=== PATIENT | female | born 1975 | race Caucasian/White ===

== ENCOUNTER → 2017-09-21 | Outpatient (CLI) | payer BC | LOC: M WHC 10:33 | DX: Z12.31 Encounter for screening mammogram for malignant neoplasm of breast (principal) | CPT/HCPCS: 77067 ==

== ENCOUNTER → 2017-09-21 | Outpatient (REF) | payer BC | LOC: M SFHCWAGY 10:40 | DX: Z12.4 Encounter for screening for malignant neoplasm of cervix (principal) | CPT/HCPCS: G0123 ==

== ENCOUNTER → 2018-09-24 | Outpatient (REF) | payer BC | LOC: M SFHCWAGY 08:17 | PROVIDERS: ATTEND Nurse Practitioner Women's Health | DX: Z12.4 Encounter for screening for malignant neoplasm of cervix (principal) | CPT/HCPCS: 87624; G0123 ==

== ENCOUNTER → 2018-09-24 | Outpatient (CLI) | payer BC ==
--- NOTE | 2018-09-24 09:02 | REPMRS ---
Patient History The patient states she had a clinical breast exam in 09/2018. Family history of breast cancer at age 50 or over in maternal cousin. Took hormonal contraceptives for 10 years beginning at age 20. 3D TOMOSYNTHESIS WAS PERFORMED. Digital Woman Screen Mammo: September 24, 2018 - Exam #: [id number] Bilateral CC and MLO view(s) were taken. Technologist: Rosana Ren, Technologist Prior study comparison: September 21, 2017, digital woman screen mammo performed at [facility]. May 31, 2016, digital woman screen mammo performed at [facility]. FINDINGS: There are scattered fibroglandular densities. There has been no change in the appearance of the mammogram from the prior studies. There is a mild amount of residual fibroglandular tissue which is fairly symmetric. There is no interval development of dominant mass, architectural distortion, or clustered microcalcification suggestive of malignancy. Assessment: BI-RADS/ACR category 1 mammogram. Negative Mammogram. Recommendation Routine screening mammogram in 1 year (for women over age 40). This mammogram was interpreted with the aid of an FDA-approved computer-aided dectection system. Electronically Signed By: Jordan Munoz MD 09/24/18 0902
== END ==
LOC: M WHC 08:03
PROVIDERS: ATTEND Nurse Practitioner Women's Health
DX: Z12.31 Encounter for screening mammogram for malignant neoplasm of breast (principal); Z80.3 Family history of malignant neoplasm of breast

== ENCOUNTER → 2019-09-25 | Outpatient (CLI) | payer BC ==
--- NOTE | 2019-09-25 10:22 | REPMRS ---
Patient History The patient states she has not had a clinical breast exam in over a year. Family history of breast cancer at age 50 or over in maternal cousin. Took hormonal contraceptives for 10 years beginning at age 20. Digital Woman Screen Mammo: September 25, 2019 - Exam #: [id number] Bilateral CC and MLO view(s) were taken. Technologist: Rosalina Huynh, Technologist Prior study comparison: September 24, 2018, bilateral digital woman screen mammo performed at [facility]. September 21, 2017, digital woman screen mammo performed at [facility]. May 31, 2016, digital woman screen mammo performed at [facility]. FINDINGS: There are scattered fibroglandular densities. There has been no change in the appearance of the mammogram from the prior studies. There is a mild amount of scattered fibroglandular density which is fairly symmetric. There is no interval development of dominant mass, architectural distortion, or grouped microcalcification suggestive of malignancy. 3-D tomosynthesis shows no additional findings. Assessment: BI-RADS/ACR category 1 mammogram. Negative Mammogram. Recommendation Routine screening mammogram of both breasts in 1 year (for women over age 40). This patient's Lifetime Breast Cancer Risk is estimated at 11.7 %. This mammogram was interpreted with the aid of an FDA-approved computer-aided dectection system. Electronically Signed By: Zeke Stover MD 09/25/19 [id number]
--- NOTE | 2019-09-25 10:47 | REP ---
Clinical: Dysmenorrhea. Technique: Transabdominal obstetrical ultrasound with color evaluation. Findings: Normal anteverted uterus measures a 0.7 x 4.5 x 5.3 cm. Endometrial complex measures 9.7 mm thickness. No discrete uterine or endometrial abnormality identified. The bilateral ovaries are normal in appearance and vascularity without torsion. Right ovary measures 2.4 x 2.1 x 2.5 cm. Left ovary measures 2.7 x 1.6 x 2.3 cm. No pelvic fluid or adnexal mass lesion. Bladder is normal in appearance and measures 9.4 x 9.0 x 5.0 cm. Impression: Normal pelvic ultrasound.
== END ==
LOC: M WHC 07:53
PROVIDERS: ATTEND Nurse Practitioner Women's Health
DX: Z12.31 Encounter for screening mammogram for malignant neoplasm of breast (principal); N92.4 Excessive bleeding in the premenopausal period; N94.6 Dysmenorrhea, unspecified; Z80.3 Family history of malignant neoplasm of breast

== ENCOUNTER → 2019-10-07 | Outpatient (REF) | payer BC | LOC: M SFHCWAGY 13:31 | PROVIDERS: ATTEND Nurse Practitioner Women's Health | DX: N92.4 Excessive bleeding in the premenopausal period (principal); N94.6 Dysmenorrhea, unspecified ==

== ENCOUNTER → 2021-11-12 | Outpatient (CLI) | payer BC | LOC: M WHC 10:27 | PROVIDERS: ATTEND Advanced Practice Midwife | DX: Z12.31 Encounter for screening mammogram for malignant neoplasm of breast (principal) ==

== ENCOUNTER → 2024-12-12 | Outpatient (CLI) | payer BC | LOC: M WHC 14:01 | PROVIDERS: ATTEND Advanced Practice Midwife | DX: Z12.31 Encounter for screening mammogram for malignant neoplasm of breast (principal); R92.313 Mammographic fatty tissue density, bilateral breasts ==

== ENCOUNTER → 2024-12-12 | Outpatient (REF) | payer BC ==
[2024-12-14 14:44] LABS: HPV APTIMA Not Detected (Not Detected)
== END ==
LOC: M PLALAB 14:55
PROVIDERS: ATTEND Advanced Practice Midwife
DX: Z12.4 Encounter for screening for malignant neoplasm of cervix (principal)
CPT/HCPCS: 87624; G0123